=== PATIENT | male | born 1970 | race Caucasian/White ===

== ENCOUNTER 2016-10-16 07:07 | Emergency (ER) | payer OTHER ==
[~2016-10-16] VITALS: Ht 180.3 cm; Wt 93.0 kg
[~2016-10-16 07:07] MED LIST: ALPR.25 PO; ASPI325T PO; METO50 PO
[2016-10-16 07:16] VITALS: BP 124/90; PULSE 86; RESP 18; TEMP 98.9; O2SAT 97
[2016-10-16] MEDS ORDERED: PRED10PA2 PO ×2 (07:31→07:41)
[2016-10-16] MEDS ORDERED: NORC5TAB PO ×2 (07:31→07:41)
--- NOTE | 2016-10-16 07:31 | PD ---
HPI . Right ankle pain Chief Complaint: Pain: Acute or Chronic Time Seen by Provider: 07:20 Travel History International Travel<30 days: No Contact w/Intl Traveler<30days: No History of Present Illness HPI Patient presents with right ankle pain that started yesterday evening. 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 He states that he is constantly stepping in holes. He states that he stepped in a hole yesterday and turned his ankle. However, he had no pain associated with this injury. Later, however, he developed pain in the medial aspect of the right ankle. He states that he treated it with ice and elevation. He did not take any medication for it. States he does not like to take medication. He states that his father has a history of gout and the symptoms that he his currently experiencing reminds him of his father's gout. PFSH Past Medical History Anxiety: Yes Heart Rhythm Problems: No Cardiac Catheterization: No Cardiovascular Problems: Yes (STRESSTEST/ECHOCARDIOGRAM: NEGATIVE IN 2012, DR. BANKS) High Cholesterol: No Congestive Heart Failure: No Diabetes: No Diminished Hearing: No GERD: Yes ("HEARTBURN") Hypertension: Yes Past Surgical History Coronary Artery Bypass Graft: No Oral Surgery: Yes (CHILDHOOD) Family History Family Hypercholesterolemia: Yes (FATHER) Social History Alcohol Use: Yes (2X WEEK ) Tobacco Use: No Substance Use: No Allergies-Medications (Allergen,Severity, Reaction): Coded Allergies: No Known Allergies (Verified , 02/29/16) Reported Meds & Prescriptions Reported Meds & Active Scripts Active Reported Xanax 0.25 Mg (Alprazolam) Alprazolam 0.25 mg Tab 1 Tab PO Q6H PRN Aspirin 325 mg (Aspirin) 325 Mg Tab 325 Mg PO ONCE Lopressor (Metoprolol Tartrate) 50 Mg Tab 25 Mg PO BID Review of Systems Except as stated in HPI: all other systems reviewed are Neg Musculoskeletal: Positive: Arthralgias Skin: Positive Change in Pigmentation (redness to the medial aspect of the right ankle) Physical Exam Narrative GENERAL: Healthy-appearing man in no acute distress. SKIN: Warm and dry. Erythema and warmth over the right medial malleolus. HEAD: Atraumatic. Normocephalic. EYES: Pupils equal and round. ENT: No nasal bleeding or discharge. Mucous membranes pink and moist. NECK: Trachea midline. CARDIOVASCULAR: Regular rate and rhythm. RESPIRATORY: No accessory muscle use. MUSCULOSKELETAL: No obvious deformities. No edema. Tender over the medial left ankle. NEUROLOGICAL: Awake and alert. No obvious cranial nerve deficits. Motor grossly within normal limits. Normal speech. PSYCHIATRIC: Appropriate mood and affect; insight and judgment normal. Data Data Last Documented VS Vital Signs Date Time Temp Pulse Resp B/P Pulse Ox O2 Delivery O2 Flow Rate FiO2 10/16/16 07:16 98.9 86 18 124/90 97 Room Air MDM Medical Decision Making Medical Screen Exam Complete: Yes Emergency Medical Condition: Yes Differential Diagnosis Differential diagnosis of joint pain includes but is not limited to arthritis, gout, sprain/strain, fracture, dislocation Narrative Course Patient presents with right ankle pain. Didn't twist his ankle yesterday but did not have pain at the time of the injury. His ankle looks more like gout than a sprain or strain. Diagnosis Primary Impression: Gout Qualified Code: M10.071 - Acute idiopathic gout of right ankle Scripts Hydrocodone-Acetaminophen ([place])5-325 mg Tab1-2 Tab PO Q6H PRN (PAIN) #12 TAB Ref 0 Prov:Charlotte Pascal MD 10/16/16 Prednisone (48) 10 mg tab Dose Pack 10 Mg Dspk10 Mg PO DIRECTED #1 DSPK Ref 0 Prov:Charlotte Pascal MD 10/16/16 Disposition: 01 DISCHARGE HOME Condition: Stable Charlotte Pascal MD Oct 16, 2016 07:31
[2016-10-16] MEDS ORDERED: METO25TA3 PO (07:32)
== END 2016-10-16 07:52 | disposition home or self-care (01) ==
LOC: PHEFT 07:07
DX: M10.071 Idiopathic gout, right ankle and foot (principal); Z86.59 Personal history of other mental and behavioral disorders; Z86.79 Personal history of other diseases of the circulatory system; Z87.19 Personal history of other diseases of the digestive system
CPT/HCPCS: 99283